=== PATIENT | female | born 1990 | race Caucasian/White ===

== ENCOUNTER 2016-10-10 16:36 | Emergency (ER) | payer OTHER ==
[~2016-10-10] VITALS: Ht 167.6 cm; Wt 80.0 kg
[2016-10-10] MEDS ORDERED: IBUPROFEN 800MG TABLET PO ONE (19:00)
[2016-10-10 19:25] VITALS: BP 100/51
== END 2016-10-10 20:42 | disposition home or self-care (01) ==
LOC: ER 19:13
DX: S93.401A Sprain of unspecified ligament of right ankle, initial encounter (principal); F17.200 Nicotine dependence, unspecified, uncomplicated; X50.1XXA Overexertion from prolonged static or awkward postures, initial encounter; Y93.89 Activity, other specified; Y92.89 Other specified places as the place of occurrence of the external cause; Y99.8 Other external cause status
CPT/HCPCS: 73610; 73630; 81025; 99284; Z7610

== ENCOUNTER 2016-10-26 23:20 | Emergency (ER) | payer OTHER ==
[~2016-10-26] VITALS: Ht 167.6 cm; Wt 77.0 kg
[2016-10-26 23:55] VITALS: BP 126/68
[2016-10-27 00:18] LABS: BASOPHILS % 0.5 % (0.0-2.0); EOSINOPHILS % 0.4 % (0.0-5.0); HEMATOCRIT. 33.1 % (36.0-48.0); HEMOGLOBIN. 11.4 g/dL (12.0-16.0); LYMPHOCYTES % 22.2 % (20.0-50.0); MEAN CORPUSCULAR HEMOGLOBIN 25.8 pg (28.0-32.0); MEAN CORPUSCULAR VOLUME 75.3 fL (81.0-99.0); MEAN PLATELET VOLUME 7.3 fl (7.4-10.4); MONOCYTES % 5.5 % (2.0-8.0); NEUTROPHILS % 71.4 % (40.0-76.0); PLATELET 301 x1000/uL (130-400); RED CELL DISTRIBUTION WIDTH 15.4 % (11.6-14.6)
[2016-10-27 00:26] LABS: CHLORIDE 108 mEq/L (98-107)
[2016-10-27 00:41] LABS: CARBON DIOXIDE 23 mEq/L (21-32)
[2016-10-27 00:49] LABS: B-HCG QUANTITATIVE 8369 mIU/mL (<3)
== END 2016-10-27 01:43 | disposition left against medical advice (07) ==
LOC: ER 23:57
DX: O20.0 Threatened abortion (principal); Z3A.01 Less than 8 weeks gestation of pregnancy; Z71.89 Other specified counseling
CPT/HCPCS: 36415; 76801; 80048; 84702; 85025; 86850; 86900; 86901; 99285; Z7610

== ENCOUNTER 2016-10-27 22:59 | Emergency (ER) | payer OTHER ==
[~2016-10-27] VITALS: Ht 175.3 cm; Wt 78.0 kg
[2016-10-28] MEDS ORDERED: ONDANSETRON 4MG ODT PO ONE (04:15)
[2016-10-28 04:49] LABS: BASOPHILS % 0.5 % (0.0-2.0); EOSINOPHILS % 1.2 % (0.0-5.0); HEMATOCRIT. 33.4 % (36.0-48.0); HEMOGLOBIN. 11.6 g/dL (12.0-16.0); LYMPHOCYTES % 38.6 % (20.0-50.0); MEAN CORPUSCULAR HEMOGLOBIN 26.5 pg (28.0-32.0); MEAN CORPUSCULAR VOLUME 76.4 fL (81.0-99.0); MEAN PLATELET VOLUME 7.3 fl (7.4-10.4); MONOCYTES % 9.4 % (2.0-8.0); NEUTROPHILS % 50.3 % (40.0-76.0); PLATELET 282 x1000/uL (130-400); RED BLOOD CELL COUNT 4.38 mill/uL (4.2-5.4); RED CELL DISTRIBUTION WIDTH 15.5 % (11.6-14.6)
[2016-10-28 04:59] LABS: CARBON DIOXIDE 28 mEq/L (21-32); CHLORIDE 110 mEq/L (98-107)
[2016-10-28 05:56] VITALS: BP 108/57
[2016-10-28 06:20] LABS: CLARITY URINE CLEAR (CLEAR); COLOR URINE YELLOW (YELLOW); KETONES URINE NEGATIVE (NEGATIVE); LEUKOCYTE ESTERASE URINE 2+ (NEGATIVE); NITRITE URINE NEGATIVE (NEGATIVE); OCCULT BLOOD URINE TRACE (NEGATIVE); PH URINE 6.5 (4.5-8.0); PROTEIN URINE NEGATIVE (NEGATIVE); SPECIFIC GRAVITY URINE 1.017 (1.005-1.030); UROBILINOGEN URINE 0.2 E.U./dL (0.2-1.0)
== END 2016-10-28 06:50 | disposition home or self-care (01) ==
LOC: ER 23:02
DX: O20.0 Threatened abortion (principal); O23.41 Unspecified infection of urinary tract in pregnancy, first trimester; O99.321 Drug use complicating pregnancy, first trimester; F12.90 Cannabis use, unspecified, uncomplicated; Z98.890 Other specified postprocedural states; Z3A.01 Less than 8 weeks gestation of pregnancy
CPT/HCPCS: 36415; 76801; 76817; 80053; 81001; 81025; 85025; 99285; Z7610

== ENCOUNTER 2016-11-19 15:35 | Emergency (ER) | payer OTHER ==
[~2016-11-19] VITALS: Ht 167.6 cm; Wt 79.0 kg
[2016-11-19] MEDS ORDERED: PNV1TABL76 PO (16:05)
[2016-11-19 18:53] VITALS: BP 102/71
[2016-11-19 19:52] LABS: CLARITY URINE CLEAR (CLEAR); COLOR URINE YELLOW (YELLOW); GLUCOSE URINE NEGATIVE (NEGATIVE); KETONES URINE TRACE (NEGATIVE); LEUKOCYTE ESTERASE URINE 1+ (NEGATIVE); NITRITE URINE NEGATIVE (NEGATIVE); OCCULT BLOOD URINE NEGATIVE (NEGATIVE); PH URINE 5.5 (4.5-8.0); PROTEIN URINE NEGATIVE (NEGATIVE); SPECIFIC GRAVITY URINE 1.028 (1.005-1.030); UROBILINOGEN URINE 0.2 E.U./dL (0.2-1.0)
== END 2016-11-19 20:10 | disposition home or self-care (01) ==
LOC: ER 15:35
DX: O26.891 Other specified pregnancy related conditions, first trimester (principal); N75.1 Abscess of Bartholin's gland; F12.10 Cannabis abuse, uncomplicated; Z3A.08 8 weeks gestation of pregnancy
CPT/HCPCS: 81001; 81025; 99283